=== PATIENT | female | born 1955 | race Caucasian/White ===

== ENCOUNTER 2023-07-12 15:16 | Emergency (ER) | payer MEDICARE, MEDICAID ==
[~2023-07-12] VITALS: Ht 162.6 cm; Wt 58.0 kg
[2023-07-12] MEDS: normal saline 1000ML IV soln IVB ONE (15:48)
[2023-07-12] MEDS: ondansetron/PF 4mg/2ml inj IV ONE (15:57)
[2023-07-12 16:18] LABS: BASOPHILS # (AUTO) 0.1 X10'3 (0-0.2); BASOPHILS % (AUTO) 0.6 % (0-1); EOSINOPHILS # (AUTO) 0.2 X10'3 (0-0.9); EOSINOPHILS % (AUTO) 1.9 % (0-6); HEMATOCRIT 36.4 % (35.0-45.0); HEMOGLOBIN 12.4 g/dl (12.0-16.0); LYMPHOCYTES # (AUTO) 1.9 X10'3 (1.1-4.8); LYMPHOCYTES % (AUTO) 19.8 % (21-51); MEAN CORPUSCULAR HEMOGLOBIN 29.3 PG (27.0-31.0); MEAN CORPUSCULAR HGB CONC 34.2 g/dL (33.0-36.5); MEAN CORPUSCULAR VOLUME 85.6 FL (78-98); MEAN PLATELET VOLUME 7.4 FL (7.4-10.4); MONOCYTES # (AUTO) 0.5 X10'3 (0-0.9); MONOCYTES % (AUTO) 5.6 % (2-12); NEUTROPHILS # (AUTO) 6.8 X10'3 (1.8-7.7); NEUTROPHILS % (AUTO) 72.1 % (42-75); PLATELET COUNT 346 X10'3 (140-440); RED BLOOD COUNT 4.25 X10'6 (4.20-5.60); RED CELL DISTRIBUTION WIDTH 13.8 % (11.5-14.5); WHITE BLOOD COUNT 9.4 X10'3 (4.5-11.0)
[2023-07-12 16:29] LABS: ALBUMIN 3.2 G/DL (3.4-5.0); ANION GAP 8 (8-16); BLOOD UREA NITROGEN 18 MG/DL (7-18); BUN/CREATININE RATIO 16.2 (10.0-20.0); CALCIUM 8.5 MG/DL (8.5-10.1); CHLORIDE 109 MMOL/L (99-107); CREATININE 1.11 MG/DL (0.40-0.90); GLUCOSE 76 MG/DL (70-104); LIPASE 29 U/L (16-77); POTASSIUM 3.8 MMOL/L (3.5-5.1); SODIUM 145 MMOL/L (135-145); TOTAL CARBON DIOXIDE 28.1 MMOL/L (24-32); eCRCL 44 ML/MIN; eGFR 49 ML/MIN
[2023-07-12 16:40] VITALS: BP 147/81; PULSE 82; RESP 14
[2023-07-12] MEDS ORDERED: fentaNYL/PF 50MCG/1 ML 2ML syringe ONE (16:47)
[2023-07-12] MEDS ORDERED: LIDOcaine 2% Viscous 15ml cup ONE (16:47)
[2023-07-12] MEDS ORDERED: MIDAZolam 1 MG/ML 5ML VIAL ONE (16:47)
[2023-07-12 17:12] VITALS: BP 148/80; PULSE 71; RESP 17; O2SAT 100
[2023-07-12 17:17] VITALS: BP 137/86; PULSE 71; RESP 17; O2SAT 96
[2023-07-12 17:22] VITALS: BP 140/85; PULSE 70; RESP 16; O2SAT 95
[2023-07-12 17:32] VITALS: BP 143/83; PULSE 71; RESP 16; O2SAT 96
[2023-07-12 20:33] VITALS: BP 139/85; PULSE 75; RESP 16; TEMP 98.4; O2SAT 96
== END 2023-07-12 20:30 | disposition home or self-care (01) ==
LOC: ER 15:18
DX: T18.128A Food in esophagus causing other injury, initial encounter (principal); R79.1 Abnormal coagulation profile; W44.F3XA Food entering into or through a natural orifice, initial encounter; Y93.89 Activity, other specified; Y92.89 Other specified places as the place of occurrence of the external cause; Y99.8 Other external cause status
CPT/HCPCS: 36415; 43247; 80048; 83690; 85025; 85610; 96361; 96374; 99152; 99285; J2250; J2405; J3010; J7030; Z7512; A4620